=== PATIENT | female | born 1995 | race Caucasian/White ===

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

== ENCOUNTER 2017-09-17 17:57 | Emergency (ER) | payer OTHER ==
[2017-09-17 18:08] VITALS: BP 126/68; TEMP 97.6; BMI 27.1
[2017-09-17] MEDS ORDERED: ONDANSETRON 4 MG/2 ML VIAL IVPUSH ONE (18:19)
[2017-09-17] MEDS ORDERED: SODIUM CHLORIDE 0.9% 1000 ML INFUS.BAG IV ONE (18:20)
[2017-09-17] MEDS ORDERED: METOCLOPRAMIDE HCL INJECTION 10 MG/2 ML VIAL IVPUSH ONE (18:21)
--- NOTE | 2017-09-17 18:21 | PDOC ---
Attending Attestation - Resident Resident Name: Rosi Lim - ED Attending Attestation I have performed the following: I have examined & evaluated the patient, The case was reviewed & discussed with the resident, I agree w/resident's findings & plan, Exceptions are as noted - HPI HPI: 09/17/17 18:19 22 yo with history of migraine headaches presents with her usual migraine headache that has persisted for two days despite multiple doses of her usual migraine medicines. - Physicial Exam PE: 09/17/17 18:20 VSS, NAD, No Active Vomiting - Medical Decision Making 09/17/17 18:[address] Lim's Assessment and Plan
[2017-09-17] MEDS ORDERED: METOCLOPRAMIDE HCL INJECTION 10 MG/2 ML VIAL ONE (18:25)
[2017-09-17] MEDS ORDERED: PROCHLORPERAZINE INJECTION 10 MG/2 ML VIAL IVPB ONE (18:26)
[2017-09-17] MEDS ORDERED: PROCHLORPERAZINE INJECTION 10 MG/2 ML VIAL ONE (18:31)
--- NOTE | 2017-09-17 18:46 | PDOC ---
History of Present Illness - General Chief Complaint: Migraine Headache Stated Complaint: headaches/vomiting Time Seen by Provider: 09/17/17 18:14 - History of Present Illness Initial Comments: 09/17/17 18:40 Patient is a 22 y.o. female with no PMH who presents to the ED c/o exacerbation of her migraines including 3 episodes of non-bilous, non-blood emesis. Patient states she was given a prescription for Sumatriptan by her PMD, however it only worked for 1 week so she stopped taking the medications. Patient endorses some associated lightheadedness however denies syncope and also denies dyspnea, chest pain. NKDA Surgical: denies Social: denies nicotine, denies alcohol, denies recreational drugs PMD: Dr. rAreola Past History - Past Medical History Allergies/Adverse Reactions: Allergies Allergy/AdvReac Type Severity Reaction Status Date / Time No Known Allergies Allergy Verified 09/17/17 18:04 Home Medications: Ambulatory Orders Ondansetron HCl [Zofran] 4 mg PO PRN #16 tablet 09/17/17 COPD: No Other medical history: migraines - Immunization History Immunization Up to Date: No - Suicide/Smoking/Psychosocial Hx Smoking History: Never smoked Have you smoked in the past 12 months: No Number of Cigarettes Smoked Daily: 2 If you are a former smoker, when did you quit?: 2013 Information on smoking cessation initiated: No Hx Alcohol Use: No Drug/Substance Use Hx: No Substance Use Type: None Review of Systems - Review of Systems Constitutional: No: Chills, Fever HEENTM: No: Blurred Vision, Double Vision Respiratory: No: Shortness of Breath Cardiac (ROS): Yes: Lightheadedness. No: Chest Pain Neurological: Yes: Headache. No: Seizure, Tingling, Tremors, Weakness, Unsteady Gait, Ataxia, Dizziness All Other Systems: Reviewed and Negative *Physical Exam - Vital Signs Last Vital Signs Temp Pulse Resp BP Pulse Ox 97.6 F 92 H 18 126/68 100 09/17/17 18:00 09/17/17 18:00 09/17/17 18:00 09/17/17 18:00 09/17/17 18:00 - Physical Exam General Appearance: Yes: Nourished, Appropriately Dressed HEENT: positive: EOMI, OMAR Respiratory/Chest: positive: Lungs Clear, Normal Breath Sounds Cardiovascular: positive: S1, S2 Gastrointestinal/Abdominal: positive: Normal Bowel Sounds, Flat Extremity: positive: Normal Capillary Refill, Normal Inspection Integumentary: positive: Normal Color, Dry, Warm Neurologic: positive: early childhood services coordinator II-XII NML intact, Fully Oriented, Alert, Motor Strength 5/5, Finger to Nose, Other (non-ataxic, non-antalgic gait). negative: Confused, Disoriented ED Treatment Course - LABORATORY CBC & Chemistry Diagram: 09/17/17 18:56 09/17/17 18:56 - Medications Given in the ED: ED Medications Discontinued Medications Generic Name Dose Route Start Last Admin Trade Name Freq PRN Reason Stop Dose Admin Ondansetron HCl 4 mg 09/17/17 18:19 09/17/17 18:24 Zofran Injection IVPUSH 09/17/17 18:20 Not Given ONCE ONE Medical Decision Making - Medical Decision Making 09/17/17 18:46 Patient is a 22 y.o. female who presents with migraine + emesis. On PE, patient is hemodynamically stable, neurologically intact, normal cerebellar testing. PLAN: 1. CBC, CMP with electrolyte replacement as neccessary 2. Urine 3. Compazine + Reglan + Benadryl Reasess Likely dispo is home with neurology follow-up. Patient signed out to Dr. Dominguez (Resident) and Dr. Mraina (Attending). *DC/Admit/Observation/Transfer Diagnosis at time of Disposition: Migraine Qualifiers: Migraine type: unspecified Status migrainosus presence: without status migrainosus Intractability: not intractable Qualified Code(s): G43.909 - Migraine, unspecified, not intractable, without status migrainosus - Discharge Dispostion Disposition: HOME - Prescriptions Prescriptions: Ondansetron HCl [Zofran] 4 mg PO PRN #16 tablet - Referrals Referrals: Laron Arreola MD [Primary Care Provider] - William Cuenca MD [Staff Physician] - - Patient Instructions Printed Discharge Instructions: DI for Migraine Additional Instructions: Return to the ED for any new, worsening or concerning symptoms including increased pain, confusion, visual changes. Make an appointment with Dr. Cuenca (contact information provided) for evaluation of your headaches. - Post Discharge Activity
[2017-09-17 19:00] LABS: BASOPHIL 0.8 % (0-2.0); MCH 27.1 pg (25.7-33.7); MCHC 33.2 g/dl (32.0-36.0); MEAN CELL VOLUME 81.4 fl (80-96); MEAN PLT VOLUME 8.1 fl (7.5-11.1); NEUTROPHILS 57.1 % (42.8-82.8); PLATELET COUNT 300 K/MM3 (134-434); RDW 14.1 % (11.6-15.6); WHITE BLOOD COUNT 10.5 K/mm3 (4.0-10.0)
[2017-09-17 19:01] VITALS: PULSE 82
--- NOTE | 2017-09-17 19:04 | PDOC ---
*Physical Exam - Vital Signs Last Vital Signs Temp Pulse Resp BP Pulse Ox 97.6 F 82 16 126/68 100 09/17/17 18:00 09/17/17 19:00 09/17/17 19:00 09/17/17 18:00 09/17/17 19:00 ED Treatment Course - LABORATORY CBC & Chemistry Diagram: 09/17/17 18:56 09/17/17 18:56 - ADDITIONAL ORDERS Additional order review: Laboratory Results 09/17/17 18:56 Urine HCG, Qual Negative 09/17/17 18:56 RBC 5.18 MCV 81.4 MCHC 33.2 RDW 14.1 MPV 8.1 Neutrophils % 57.1 Lymphocytes % 34.8 Monocytes % 6.3 Eosinophils % 1.0 Basophils % 0.8 - Medications Given in the ED: ED Medications Discontinued Medications Generic Name Dose Route Start Last Admin Trade Name Freq PRN Reason Stop Dose Admin Diphenhydramine HCl 12.5 mg 09/17/17 18:22 09/17/17 18:55 Benadryl Injection - IVPUSH 09/17/17 18:23 12.5 mg ONCE ONE Administration Metoclopramide HCl 10 mg 09/17/17 18:21 09/17/17 18:55 Reglan Injection - IVPUSH 09/17/17 18:22 10 mg ONCE ONE Administration Ondansetron HCl 4 mg 09/17/17 18:19 09/17/17 18:24 Zofran Injection IVPUSH 09/17/17 18:20 Not Given ONCE ONE Prochlorperazine Edisylate 5 mg 09/17/17 18:26 09/17/17 18:55 Compazine Injection - IVPB 09/17/17 18:27 5 mg ONCE ONE Administration Sodium Chloride 1,000 ml 09/17/17 18:20 09/17/17 18:55 Normal Saline - IV 09/17/17 18:21 1,000 ml ONCE ONE Administration Medical Decision Making - Medical Decision Making 09/17/17 19:05 Care taken over from Dr. Lim. 09/17/17 19:40 Patient examined - patient reports complete resolution of symptoms and would like to go home. Requests prescription for nausea. Will proscribe 4 days of zofran with instructions to f/u w/in 1-2 days with PCP. *DC/Admit/Observation/Transfer Diagnosis at time of Disposition: Migraine Qualifiers: Migraine type: unspecified Status migrainosus presence: without status migrainosus Intractability: not intractable Qualified Code(s): G43.909 - Migraine, unspecified, not intractable, without status migrainosus - Discharge Dispostion Disposition: HOME - Referrals Referrals: Laron Arreola MD [Primary Care Provider] - - Patient Instructions Printed Discharge Instructions: DI for Migraine Additional Instructions: Please return if any increase in pain, fever, or any other concerning symptoms. - Post Discharge Activity
[2017-09-17 19:32] LABS: ALBUMIN 4.1 g/dl (3.4-5.0); ANION GAP 7 (8-16); BILIRUBIN,TOTAL 0.2 mg/dL (0.2-1.0); CALCIUM 9.5 mg/dL (8.5-10.1); CO2 29 mmol/L (21-32); CREATININE 0.6 mg/dL (0.55-1.02); GLUCOSE,RANDOM 91 mg/dL (74-106); SGOT/AST 9 U/L (15-37); SGPT/ALT 24 U/L (12-78)
[2017-09-17 19:34] LABS: ALK PHOS 68 U/L (45-117); TOT PROT 7.9 g/dl (6.4-8.2)
== END 2017-09-17 20:20 | disposition home or self-care (01) ==
LOC: JER 17:57
PROC: 3E0337Z Introduction of Electrolytic and Water Balance Substance into Peripheral Vein, Percutaneous Approach (ICD-10-PCS; principal; 2017-09-17)
PROC: 3E033GC Introduction of Other Therapeutic Substance into Peripheral Vein, Percutaneous Approach (ICD-10-PCS; 2017-09-17)
DX: G43.909 Migraine, unspecified, not intractable, without status migrainosus (principal); Z87.891 Personal history of nicotine dependence
CPT/HCPCS: 36415; 80053; 84703; 85025; 99283-25

== ENCOUNTER 2018-01-06 01:26 | Emergency (ER) | payer OTHER ==
[2018-01-06 01:44] VITALS: BP 119/73; PULSE 92; TEMP 97.2; BMI 26.5
[2018-01-06] MEDS ORDERED: methylPREDNISolone NA SUCC 125 MG/2 ML VIAL IVPB ONE (01:49)
[2018-01-06] MEDS ORDERED: SODIUM CHLORIDE 1,000 ML IV STA (01:49)
--- NOTE | 2018-01-06 01:49 | PDOC ---
History of Present Illness - General Chief Complaint: Rash Stated Complaint: RASH Time Seen by Provider: 01/06/18 01:37 History Source: Patient Exam Limitations: No Limitations - History of Present Illness Initial Comments: 01/06/18 02:45 Best Contact: Pmhx:N/A Pshx:Tonsillectomy 2000 Allergies: NKDA 22-year-old female presents to the emergency department complaining of bilateral anterior forearm , anterior chest and lower back puritic urticaria without nausea/vomiting, fever/chills, chest pain, shortness of breath. Patient states she was at [facility] for approximately one week 6 days ago when she noticed a slow onset of urticaria. Patient states the food is a bit different but she denied using different soap or detergent. Patient states she did take Benadryl 50 mg 2 days ago and yesterday with relief. Patient states the urticaria has gotten better but has not gone away. No history of similar symptoms. Past History - Past Medical History Allergies/Adverse Reactions: Allergies Allergy/AdvReac Type Severity Reaction Status Date / Time No Known Allergies Allergy Verified 01/06/18 01:43 Home Medications: Ambulatory Orders Methylprednisolone [Medrol Dose Daniel] 4 mg PO ASDIR #21 tablet 01/06/18 Ranitidine HCl [Zantac] 150 mg PO DAILY #10 tablet 01/06/18 COPD: No - Immunization History Immunization Up to Date: No - Suicide/Smoking/Psychosocial Hx Smoking History: Never smoked Have you smoked in the past 12 months: No Number of Cigarettes Smoked Daily: 2 If you are a former smoker, when did you quit?: 2013 Information on smoking cessation initiated: No Hx Alcohol Use: No Drug/Substance Use Hx: No Substance Use Type: None Review of Systems - Review of Systems Able to Perform ROS?: Yes Comments:: 01/06/18 02:50 CONSTITUTIONAL: Absent: fever, chills, diaphoresis, generalized weakness, malaise, loss of appetite HEENT: Absent: rhinorrhea, nasal congestion, throat pain, throat swelling, difficulty swallowing, mouth swelling, ear pain, eye pain, visual Changes CARDIOVASCULAR: Absent: chest pain, loss of consciousness, palpitations, irregular heart rate, peripheral edema RESPIRATORY: Absent: cough, shortness of breath, dyspnea with exertion, orthopnea, wheezing, stridor, hemoptysis GASTROINTESTINAL: Absent: abdominal pain, abdominal distension, nausea, vomiting, diarrhea, constipation, melena, hematochezia GENITOURINARY: Absent: dysuria, frequency, urgency, hesitancy, hematuria, flank pain, genital pain MUSCULOSKELETAL: Absent: myalgia, arthralgia, joint swelling SKIN: +Puritic urticartia ant b/l forearms, lower back, ant chest Absent: pallor HEMATOLOGIC/IMMUNOLOGIC: Absent: easy bleeding, easy bruising, lymphadenopathy, frequent infections Is the patient limited Turkish proficient: No *Physical Exam - Vital Signs Last Vital Signs Temp Pulse Resp BP Pulse Ox 97.2 F L 92 H 20 119/73 100 01/06/18 01:43 01/06/18 01:43 01/06/18 01:43 01/06/18 01:43 01/06/18 01:43 - Physical Exam Comments: 01/06/18 02:51 GENERAL: Well developed, well nourished. Awake and alert. No acute distress. HEENT: Normocephalic, atraumatic. PERRLA, EOMI. No conjunctival pallor. Sclera are non- icteric. Moist mucous membranes. Oropharynx is clear. NECK: Supple. Full ROM. No JVD. Carotid pulses 2+ and symmetric, without bruits. No thyromegaly. No lymphadenopathy. CARDIOVASCULAR: Regular rate and rhythm. No murmurs, rubs, or gallops. Distal pulses are 2+ and symmetric. PULMONARY: No evidence of respiratory distress. Lungs clear to auscultation bilaterally. No wheezing, rales or rhonchi. ABDOMINAL: Soft. Non-tender. Non-distended. No rebound or guarding. No organomegaly. Normoactive bowel sounds. MUSCULOSKELETAL Normal range of motion at all joints. No bony deformities or tenderness. No CVA tenderness. EXTREMITIES: No cyanosis. No clubbing. No edema. No calf tenderness. SKIN: Mild anterior bilateral forearm/anterior chest, lower back urticaria Warm and dry. Normal capillary refill. No rashes. No jaundice. *DC/Admit/Observation/Transfer Diagnosis at time of Disposition: Urticaria - Discharge Dispostion Disposition: HOME Condition at time of disposition: Stable Admit: No - Prescriptions Prescriptions: Methylprednisolone [Medrol Dose Daniel] 4 mg PO ASDIR #21 tablet Ranitidine HCl [Zantac] 150 mg PO DAILY #10 tablet - Referrals Referrals: Laron Arreola MD [Primary Care Provider] - - Patient Instructions Printed Discharge Instructions: DI for Hives Additional Instructions: Take Medrol Dosepak as prescribed Take Zantac daily for 10 days Follow up with Broker Assistant this week Return to the ER for severe/persistent/worsening/concerning symptoms - Post Discharge Activity
[2018-01-06] MEDS ORDERED: RANITIDINE HCL 150 MG TABLET (FP) PO ONE (01:50)
[2018-01-06] MEDS ORDERED: RANITIDINE HCL 150 MG TABLET (FP) ONE (01:55)
[2018-01-06] MEDS ORDERED: methylPREDNISolone NA SUCC 125 MG/2 ML VIAL ONE ×2 (01:55→01:56)
== END 2018-01-06 02:56 | disposition home or self-care (01) ==
LOC: JER 01:26
PROC: 3E0337Z Introduction of Electrolytic and Water Balance Substance into Peripheral Vein, Percutaneous Approach (ICD-10-PCS; principal; 2018-01-06)
PROC: 3E033GC Introduction of Other Therapeutic Substance into Peripheral Vein, Percutaneous Approach (ICD-10-PCS; 2018-01-06)
PROC: 3E0333Z Introduction of Anti-inflammatory into Peripheral Vein, Percutaneous Approach (ICD-10-PCS; 2018-01-06)
DX: L50.9 Urticaria, unspecified (principal)
CPT/HCPCS: 96361; 96374; 96375; 99281-25; J7030

== ENCOUNTER 2018-09-11 18:23 | Emergency (ER) | payer OTHER ==
[2018-09-11 18:43] VITALS: TEMP 99.1; BMI 24.6
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
[2018-09-11] MEDS ORDERED: METOCLOPRAMIDE HCL INJECTION 10 MG/2 ML VIAL IVPUSH ONE (19:17)
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
[2018-09-11] MEDS ORDERED: METOCLOPRAMIDE HCL 10 MG TABLET (FP) PO ONE ×2 (20:18→21:08)
[2018-09-11] MEDS ORDERED: diphenhydrAMINE HCL 25 MG CAPSULE (FP) PO ONE ×2 (20:18→21:08)
[2018-09-11] MEDS ORDERED: ONDANSETRON *ODT* 4 MG TABLET SL ONE (20:38)
[2018-09-11] MEDS ORDERED: ONDANSETRON *ODT* 4 MG TABLET ONE (21:08)
--- NOTE | 2018-09-11 22:12 | PDOC ---
*Physical Exam - Vital Signs Last Vital Signs Temp Pulse Resp BP Pulse Ox 99.1 F 88 18 126/80 100 09/11/18 18:28 09/11/18 18:28 09/11/18 18:28 09/11/18 18:28 09/11/18 18:28 ED Treatment Course - LABORATORY CBC & Chemistry Diagram: 09/11/18 21:45 - ADDITIONAL ORDERS Additional order review: Laboratory Results 09/11/18 20:10 Urine HCG, Qual Negative - Medications Given in the ED: ED Medications Discontinued Medications Generic Name Dose Route Start Last Admin Trade Name Ela PRN Reason Stop Dose Admin Diphenhydramine HCl 25 mg 09/11/18 19:17 09/11/18 20:37 Benadryl Injection - IVPUSH 09/11/18 19:18 Not Given ONCE ONE Diphenhydramine HCl 25 mg 09/11/18 20:18 09/11/18 21:28 Benadryl - PO 09/11/18 20:19 25 mg ONCE ONE Administration Metoclopramide HCl 10 mg 09/11/18 19:17 09/11/18 20:37 Reglan Injection - IVPUSH 09/11/18 19:18 Not Given ONCE ONE Metoclopramide HCl 10 mg 09/11/18 20:18 09/11/18 21:28 Reglan - PO 09/11/18 20:19 10 mg ONCE ONE Administration Ondansetron HCl 4 mg 09/11/18 20:38 09/11/18 21:28 Zofran Odt - SL 09/11/18 20:39 4 mg ONCE ONE Administration Medical Decision Making - Medical Decision Making 09/11/18 22:[address] Nunes. Patient currently pending CTA. 09/12/18 00:14 CT/CTA negative. Discharging patient to home. *DC/Admit/Observation/Transfer Diagnosis at time of Disposition: Headache Qualifiers: Headache type: unspecified Headache chronicity pattern: acute headache Intractability: not intractable Qualified Code(s): R51 - Headache - Discharge Dispostion Disposition: HOME - Referrals - Patient Instructions Printed Discharge Instructions: DI for Concussion Additional Instructions: You were evaluated today in the ED for your headache. We evaluated you with Head CT as well as CTA. No concerning findings were found at this time. You may take tylenol and motrin over the counter per package instructions for pain control. Follow-up with primary care provider later this week for further evaluation. Return to ED if any fever, chills, altered mental status, or other concerning findings. - Post Discharge Activity
[2018-09-11 22:38] LABS: ALBUMIN 4.1 g/dl (3.4-5.0); ALK PHOS 61 U/L (45-117); ANION GAP 9 MMOL/L (8-16); BILIRUBIN,TOTAL 0.4 mg/dL (0.2-1); BLOOD UREA NITROGEN 13 mg/dL (7-18); CALCIUM 9.2 mg/dL (8.5-10.1); CHLORIDE 104 mmol/L (98-107); CO2 27 mmol/L (21-32); CREATININE 0.7 mg/dL (0.55-1.3); GLUCOSE,RANDOM 95 mg/dL (74-106); POTASSIUM 3.6 mmol/L (3.5-5.1); SGOT/AST 15 U/L (15-37); SGPT/ALT 17 U/L (13-61); SODIUM 140 mmol/L (136-145)
[2018-09-11 23:38] VITALS: BP 119/78; PULSE 85
== END 2018-09-12 00:40 | disposition home or self-care (01) ==
LOC: JER 18:23
DX: R51 Headache (principal); V43.52XA Car driver injured in collision with other type car in traffic accident, initial encounter; Y92.414 Local residential or business street as the place of occurrence of the external cause; Y93.89 Activity, other specified; Y99.8 Other external cause status
CPT/HCPCS: 36415; 70450-TC; 70498-TC; 80053; 84703; 99282-25; Q0162

== ENCOUNTER 2019-11-28 15:36 | Emergency (ER) | payer OTHER ==
[2019-11-28] MEDS ORDERED: ACETAMINOPHEN 1000 MG/100 ML VIAL (NON FORMULARY) IVPB ONE (15:53)
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
[2019-11-28 16:00] VITALS: BP 112/69; PULSE 87; TEMP 98; BMI 24.4
[2019-11-28 16:44] LABS: BASO % 0.5 % (0-2.0); EOS % 0.4 % (0-4.5); LYMPH % 18.3 % (8-40); MCH 26.9 pg (25.7-33.7); MCHC 32.4 g/dl (32.0-36.0); MEAN CELL VOLUME 82.9 fl (80-96); MEAN PLT VOLUME 7.8 fl (7.5-11.1); MONO % 4.8 % (3.8-10.2); PLATELET COUNT 323 K/MM3 (134-434); RBC 4.82 M/mm3 (3.60-5.2); WHITE BLOOD COUNT 10.4 K/mm3 (4.0-10.0)
[2019-11-28 17:05] LABS: EPI CELLS 4.6 /HPF (0-5/HPF); HYALINE CASTS 3 /lpf (0-8); URINE APPEARANCE CLEAR; URINE BACTERIA 38.5 /hpf (NEGATIVE); URINE BILIRUBIN NEGATIVE (NEGATIVE); URINE COLOR YELLOW; URINE GLUCOSE (UA) NEGATIVE (NEGATIVE); URINE KETONE TRACE (NEGATIVE); URINE LEUK ESTERASE NEGATIVE (NEGATIVE); URINE NITRITE NEGATIVE (NEGATIVE); URINE PROTEIN NEGATIVE (NEGATIVE); URINE RBC 1 /hpf (0-4); URINE UROBILINOGEN 0.2 mg/dL (0.2-1.0); URINE WBC 2 /hpf (0-5)
[2019-11-28 17:17] LABS: ALBUMIN 4.1 g/dl (3.4-5.0); BILIRUBIN,TOTAL 0.4 mg/dL (0.2-1); BLOOD UREA NITROGEN 12.1 mg/dL (7-18); CALCIUM 9.2 mg/dL (8.5-10.1); CREATININE 0.6 mg/dL (0.55-1.3); POTASSIUM 3.6 mmol/L (3.5-5.1); TOT PROT 7.8 g/dl (6.4-8.2)
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
== END 2019-11-28 19:40 | disposition home or self-care (01) ==
LOC: JER 15:36
DX: O26.891 Other specified pregnancy related conditions, first trimester (principal); O20.0 Threatened abortion; V43.52XA Car driver injured in collision with other type car in traffic accident, initial encounter; Y92.414 Local residential or business street as the place of occurrence of the external cause; Y93.89 Activity, other specified; Y99.8 Other external cause status; Z3A.01 Less than 8 weeks gestation of pregnancy
CPT/HCPCS: 36415; 76817-TC; 80053; 81003; 84702; 84703; 85025; 86850; 86900; 86901; 87086; 99284-25

== ENCOUNTER 2020-06-29 01:32 | Emergency (ER) | payer OTHER ==
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
--- NOTE | 2020-06-29 01:53 | PDOC ---
History of Present Illness - General Stated Complaint: RASH Time Seen by Provider: 06/29/20 01:49 Past History - Medical History Allergies/Adverse Reactions: Allergies Allergy/AdvReac Type Severity Reaction Status Date / Time No Known Allergies Allergy Verified 06/26/20 15:41 Home Medications: Ambulatory Orders Methylprednisolone [Medrol Dose Daniel] 4 mg PO ASDIR #21 tablet 01/06/18 Ranitidine HCl [Zantac] 150 mg PO DAILY #10 tablet 01/06/18 Doxycycline Hyclate 100 mg PO BID 7 Days #14 capsule 06/26/20 predniSONE [Deltasone -] 20 mg PO BID 4 Days #8 tablet 06/26/20 COPD: No - Immunization History Immunization Up to Date: No - Psycho-Social/Smoking History Smoking History: Never smoked Have you smoked in the past 12 months: No Number of Cigarettes Smoked Daily: 2 If you are a former smoker, when did you quit?: 2013
[2020-06-29 02:00] VITALS: BP 120/73; PULSE 85; TEMP 98.3; BMI 24.0
[2020-06-29] MEDS ORDERED: CEPHALEXIN MONOHYDRATE 500 MG CAPSULE (UD) PO ONE (02:41)
[2020-06-29] MEDS ORDERED: diphenhydrAMINE HCL 25 MG CAPSULE (FP) PO ONE ×2 (02:41→03:07)
--- NOTE | 2020-06-29 02:44 | PDOC ---
History of Present Illness - General Chief Complaint: Rash Stated Complaint: RASH Time Seen by Provider: 06/29/20 01:49 - History of Present Illness Initial Comments: 06/29/20 02:42 - rash after hike weeks ago itchy worse today ankles lesion on L ankle with 2cm erythema and purple, well circumscribed. lyme sent 2 days ago. pending result patient concerned for dixycycline allergy as she felt more itchy after taking it no hives, airway or signs of allergy Will treat with keflex and benadryl Past History - Medical History Allergies/Adverse Reactions: Allergies Allergy/AdvReac Type Severity Reaction Status Date / Time No Known Allergies Allergy Verified 06/29/20 02:00 Home Medications: Ambulatory Orders Methylprednisolone [Medrol Dose Daniel] 4 mg PO ASDIR #21 tablet 01/06/18 Ranitidine HCl [Zantac] 150 mg PO DAILY #10 tablet 01/06/18 Doxycycline Hyclate 100 mg PO BID 7 Days #14 capsule 06/26/20 predniSONE [Deltasone -] 20 mg PO BID 4 Days #8 tablet 06/26/20 Cephalexin Monohydrate [Keflex -] 500 mg PO Q6H 7 Days #28 capsule 06/29/20 Diphenhydramine HCl [Benadryl -] 25 mg PO Q8H #20 capsule 06/29/20 COPD: No - Reproductive History Is Patient Now?: No - Immunization History Immunization Up to Date: No - Psycho-Social/Smoking History Smoking History: Never smoked Have you smoked in the past 12 months: No Number of Cigarettes Smoked Daily: 2 If you are a former smoker, when did you quit?: 2013 Information on smoking cessation initiated: No - Substance Abuse Hx (Audit-C & DAST Scrn) How often the patient has a drink containing alcohol: Never Score: In Men: 4 or > Positive; In Women: 3 or > Positive: 0 Screen Result (Pos requires Nsg. Audit-10AR): Negative In the last yr the pt used illegal drug/Rx for NonMed reason: No Score: Yes response is considered Positive: 0 Screen Result (Positive result requires Nsg. DAST-10): Negative *Physical Exam - Vital Signs Last Vital Signs Temp Pulse Resp BP Pulse Ox 98.3 F 85 16 120/73 99 06/29/20 01:35 06/29/20 01:35 06/29/20 01:35 06/29/20 01:35 06/29/20 01:35 Discharge - Discharge Information Problems reviewed: Yes Clinical Impression/Diagnosis: Rash Condition: Fair Disposition: HOME - Additional Discharge Information Prescriptions: Diphenhydramine HCl [Benadryl -] 25 mg PO Q8H #20 capsule Cephalexin Monohydrate [Keflex -] 500 mg PO Q6H 7 Days #28 capsule - Follow up/Referral Referrals: Lexis Mccall MD [Non Staff, Medical] - Mirza Krueger MD [Non Staff, Medical] - Gaudencio Colindres MD [Non Staff, Medical] - - Patient Discharge Instructions Additional Instructions: You were seen in the ER for increased itching. You were concerned for possible doxycycline allergy You were switched to Keflex and were given Benadryl You have a prescription for Benadryl, Pepcid and Keflex to be taken as prescribed. You have a referral to Dermatology Return to the ER if you feel that your wound is swelling if there is redness, if you have fevers or any other concerning symptoms. - Post Discharge Activity
--- NOTE | 2020-06-29 02:45 | PDOC ---
Attending Attestation - Resident Resident Name: Ciera Chandler - ED Attending Attestation I have performed the following: I have examined & evaluated the patient, The case was reviewed & discussed with the resident, I agree w/resident's findings & plan - HPI HPI: 06/29/20 02:41 pt has rashes on her ankles bilaterally. pt wore ankle socks while hiking 3 weeks ago. she was applying hydrocortisone to the ankles and now the rash is worse. pt came to the ER and was treated with doxy and prednisone. Now she complains that doxy and prednisone are making the itchiness worse. - Physicial Exam PE: 06/29/20 02:43 Pt has a raised targetlike lesion on the achilles on the left pt has a itchy rasied rash on the right achilles ot now has linear poison josette like rash on the fore arm and berger - Medical Decision Making 06/29/20 02:44 pt will be switched off of prednisone and doxy to keflex. SHe can continue her neosporin Discharge - Discharge Information Problems reviewed: Yes Clinical Impression/Diagnosis: Rash Condition: Fair Disposition: HOME - Additional Discharge Information Prescriptions: Diphenhydramine HCl [Benadryl -] 25 mg PO Q8H #20 capsule Diphenhydramine HCl [Benadryl -] 25 mg PO Q6H #20 capsule Cephalexin Monohydrate [Keflex -] 500 mg PO Q6H 7 Days #28 capsule Cephalexin Monohydrate [Keflex -] 500 mg PO Q6H 7 Days #28 capsule - Follow up/Referral Referrals: Lexis Mccall MD [Non Staff, Medical] - Mirza Krueger MD [Non Staff, Medical] - Gaudencio Colindres MD [Non Staff, Medical] - - Patient Discharge Instructions Additional Instructions: You were seen in the ER for increased itching. You were concerned for possible doxycycline allergy You were switched to Keflex and were given Benadryl You have a prescription for Benadryl, Pepcid and Keflex to be taken as prescribed. You have a referral to Dermatology Return to the ER if you feel that your wound is swelling if there is redness, if you have fevers or any other concerning symptoms. - Post Discharge Activity Work/Back to School Note: Back to Work
[2020-06-29] MEDS ORDERED: FAMOTIDINE 20 MG TABLET PO ONE (02:49)
[2020-06-29] MEDS ORDERED: CEPHALEXIN MONOHYDRATE 500 MG CAPSULE (UD) ONE (03:08)
[2020-06-29] MEDS ORDERED: FAMOTIDINE 20 MG TABLET ONE (03:08)
== END 2020-06-29 03:20 | disposition home or self-care (01) ==
LOC: JER 01:32
DX: R21 Rash and other nonspecific skin eruption (principal)
CPT/HCPCS: 99283-25

== ENCOUNTER 2020-07-03 16:09 | Emergency (ER) | payer OTHER ==
[2020-07-03 16:29] VITALS: BP 119/62; PULSE 89; TEMP 99.1; BMI 23.9
--- OUTSIDE RECORDS SUMMARY | 2020-07-03 16:36 | XMS ---
:1995 Author Organization [facility] Care Team Providers Name Role Phone Guadalupe [...] is protected by Article 27-F of the [facility] Public Health law. If you continue you may haveaccess to information: Regarding HIV / AIDS; Provided by facilities licensed or operated by the [facility] Office of Mental Health; or Provided by the [facility] Office for People With Developmental Disabilities. If such information is present, then the following [facility] mandated warning applies: This information has [...] law may result in a fine or penitentiary sentence or both. A general authorization for the release of medical or other information is NOT sufficient authorization for further disclosure. Encounters Encounter Providers Location Date Indications Data Source(s ) U Attender: Guadalupe Angulo [phone] 07/31/2019 [facility] (Family 11:00:00 AM EDT Services of - 07/31/2019 [place]) 12:00:00 PM EDT Patient admitted. Insurance Providers Payer name Policy type Policy ID Covered Covered republican's Policy P arsen / Coverage republican ID relationship to [place] ormation type [place] Self MEDICA[place] [id number] SP [id number] PROGRESSIVE [id number] SP [id number] PROGRESSIVE [id number] SP [id number] SELF PAY INSURANCE NO FAULT [id number] SP [id number] PENDING WC/NF [id number] ONLY Problems, Conditions, and Diagnoses Code Display Name Description Problem Type Effective Dates Data Source(s) F43.10 Post-traumatic Post-traumatic Diagnosis 07/31/2019 CARELO GIC stress disorder, stress disorder, 11:00:00 AM E DT ([facility] unspecified unspecified Services [facility]) F33.2 Major depressive Major depressive Diagnosis 07/31/2019 [place] RELOGIC disorder, disorder, 11:00:00 AM EDT (Family recurrent severe recurrent severe Se rvices of without psychotic without psychotic [place]) features features Surgeries/Procedures Procedure Description Date Indications Data Source(s) [address] 15-30 Min Brief Therapy 06/26/2020 [facility] (Family 12:00:00 AM EDT Services [facility]) [address] 15-30 Min Brief Therapy 06/17/2020 [facility] (Family 12:00:00 AM EDT Services [facility]) [address] 15-30 Min Brief Therapy 05/27/2020 [facility] (Family 12:00:00 AM EDT Services [facility]) [address] 15-30 Min Brief Therapy 05/22/2020 [facility] (Family 12:00:00 AM EDT Services of [place]) [address] 45-50 Min Regular 05/13/2020 [facility] (Family Therapy 12:00:00 AM EDT Services [facility]) [address] 15-30 Min Brief Therapy 05/06/2020 [facility] (Family 12:00:00 AM EDT Services [facility]) [address] 15-30 Min Brief Therapy 04/29/2020 [facility] (Family 12:00:00 AM EDT Services of [place]) [address] 45-50 Min Regular 04/22/2020 [facility] (Family Therapy 12:00:00 AM EDT Services [facility]) [address] 45-50 Min Regular 04/15/2020 [facility] (Family Therapy 12:00:00 AM EDT Services [facility]) [address] 15-30 Min Brief Therapy 04/08/2020 [facility] (Family 12:00:00 AM EDT Services [facility]) [address] 45-50 Min Regular 04/06/2020 [facility] (Family Therapy 12:00:00 AM EDT Services [facility]) [address] 45-50 Min Regular 03/25/2020 [facility] (Family Therapy 12:00:00 AM EDT Services [facility]) [address] 15-30 Min Brief Therapy 03/11/2020 [facility] (Family 12:00:00 AM EDT Services [facility]) [address] 15-30 Min Brief Therapy 03/10/2020 [facility] (Family 12:00:00 AM EDT Services [facility]) [address] 45-50 Min Regular 02/24/2020 [facility] (Family Therapy 12:00:00 AM EDT Services [facility]) [address] 45-50 Min Regular 02/17/2020 [facility] (Family Therapy 12:00:00 AM EDT Services [facility]) [address] 45-50 Min Regular 02/03/2020 [facility] (Family Therapy 12:00:00 AM EDT Services [facility]) [address] 45-50 Min Regular 01/30/2020 [facility] (Family Therapy 12:00:00 AM EDT Services [facility]) [address] 45-50 Min Regular 01/27/2020 [facility] (Family Therapy 12:00:00 AM EDT Services [facility]) [address] 45-50 Min Regular 01/22/2020 [facility] (Family Therapy 12:00:00 AM EDT Services [facility])
[2020-07-03] MEDS ORDERED: predniSONE 20 MG TABLET (UD) ONE (16:57)
[2020-07-03] MEDS ORDERED: predniSONE 20 MG TABLET (UD) PO ONE (16:57)
--- NOTE | 2020-07-03 17:10 | PDOC ---
History of Present Illness - General Chief Complaint: Hives Stated Complaint: HIVES Time Seen by Provider: 07/03/20 16:38 History Source: Patient - History of Present Illness Timing/Duration: reports: other Location: reports: extremities Past History - Medical History Allergies/Adverse Reactions: Allergies Allergy/AdvReac Type Severity Reaction Status Date / Time No Known Allergies Allergy Verified 06/29/20 02:00 Home Medications: Ambulatory Orders Methylprednisolone [Medrol Dose Daniel] 4 mg PO ASDIR #21 tablet 01/06/18 Ranitidine HCl [Zantac] 150 mg PO DAILY #10 tablet 01/06/18 Doxycycline Hyclate 100 mg PO BID 7 Days #14 capsule 06/26/20 predniSONE [Deltasone -] 20 mg PO BID 4 Days #8 tablet 06/26/20 Cephalexin Monohydrate [Keflex -] 500 mg PO Q6H 7 Days #28 capsule 06/29/20 Cephalexin Monohydrate [Keflex -] 500 mg PO Q6H 7 Days #28 capsule 06/29/20 Diphenhydramine HCl [Benadryl -] 25 mg PO Q6H #20 capsule 06/29/20 Diphenhydramine HCl [Benadryl -] 25 mg PO Q8H #20 capsule 06/29/20 predniSONE [Deltasone -] 20 mg PO DAILY #39 tablet 07/03/20 COPD: No - Reproductive History Is Patient Now?: No - Immunization History Immunization Up to Date: No - Psycho-Social/Smoking History Smoking History: Current every day smoker Have you smoked in the past 12 months: No Number of Cigarettes Smoked Daily: 2 If you are a former smoker, when did you quit?: 2013 Information on smoking cessation initiated: No - Substance Abuse Hx (Audit-C & DAST Scrn) How often the patient has a drink containing alcohol: Never Score: In Men: 4 or > Positive; In Women: 3 or > Positive: 0 Screen Result (Pos requires Nsg. Audit-10AR): Negative Review of Systems - Review of Systems Constitutional: No: Chills, Fever Respiratory: No: Cough, Shortness of Breath, Stridor, Wheezing Cardiac (ROS): No: Chest Pain Integumentary: Yes: Pruritus, Rash *Physical Exam - Vital Signs Last Vital Signs Temp Pulse Resp BP Pulse Ox 99.1 F 89 17 119/62 98 09/25/20 16:26 07/03/20 16:26 07/03/20 16:26 07/03/20 16:26 07/03/20 16:26 - Physical Exam General Appearance: Yes: Appropriately Dressed. No: Apparent Distress HEENT: positive: Normal Voice Neck: positive: Supple Respiratory/Chest: negative: Respiratory Distress Extremity: positive: Other (erythematous papules and patches to b/l LE, most notably over heels b/l where there are circular erythematous plaques) Integumentary: positive: Dry, Warm Neurologic: positive: Fully Oriented, Alert, Normal Mood/Affect Medical Decision Making - Medical Decision Making 07/03/20 17:00 25-year-old female, here with persistent pruritic rash to bilateral lower extremities. Of note, patient was seen here initially on 06/26 with pruritic rash to bilateral ankles. Patient hikes frequently and usually wears ankle socks and leggings with ankles exposed. When pt was seen on 06/26, was started on doxycycline for possible lyme but lyme has since come back neg. Was also started on prednisone but only given meds x 4 days. Was also given benadryl. Patient states she developed hives shortly after starting meds and returned to ED on 06/29 when doxy and prednisone was d/yung and pt started on keflex, neomycin and told to continue benadryl. Pt states she has taken prednisone and benadryl in past but hadn't taken doxy prior to this. Pt states rash has not improved and seems to be extending proximally to thighs. No respiratory symptoms. No known drug/food/environmental allergies otherwise. Feels well otherwise. see exam Possible poison safia dermatitis Started on 3 weeks pred taper today and given derm f/u To d/c keflex/neomycin as unlikely infection Lyme since came back negative Pt to return to ER as needed, otherwise f/u w/ derm 07/03/20 17:12 Discharge - Discharge Information Problems reviewed: Yes Clinical Impression/Diagnosis: Rash and nonspecific skin eruption Condition: Stable Disposition: HOME - Additional Discharge Information Prescriptions: predniSONE [Deltasone -] 20 mg PO DAILY #39 tablet - Follow up/Referral Referrals: Jenni Padron MD [Staff Physician] - - Patient Discharge Instructions Patient Printed Discharge Instructions: DI for Poison Safia Allergy Additional Instructions: Today you were started 3 weeks of steroids for possible poison safia You can discontinue the Keflex and the neomycin because there is no sign of infection at this time You can continue to take Benadryl every 6 hours for breakthrough itching Please call Dr. Padron of dermatology on Monday to make an appointment - Post Discharge Activity
== END 2020-07-03 17:07 | disposition home or self-care (01) ==
LOC: JERFT 16:09
DX: R21 Rash and other nonspecific skin eruption (principal)
CPT/HCPCS: 99283-25

== ENCOUNTER 2020-12-21 19:10 | Emergency (ER) | payer OTHER ==
[2020-12-21 19:32] VITALS: BP 113/71; PULSE 85; TEMP 98.2; BMI 26.5
[2020-12-21 21:28] LABS: URINE APPEARANCE CLEAR; URINE BILIRUBIN NEGATIVE (NEGATIVE); URINE COLOR YELLOW; URINE GLUCOSE (UA) NEGATIVE (NEGATIVE); URINE KETONE TRACE (NEGATIVE); URINE LEUK ESTERASE NEGATIVE (NEGATIVE); URINE NITRITE NEGATIVE (NEGATIVE); URINE PROTEIN NEGATIVE (NEGATIVE); URINE UROBILINOGEN 0.2 mg/dL (0.2-1.0)
[2020-12-21 21:31] LABS: HCG,QUALITATIVE URINE Negative
== END 2020-12-21 22:01 | disposition home or self-care (01) ==
LOC: JER 19:10 → JERFT 19:10 → JER 22:01
DX: Z32.02 Encounter for pregnancy test, result negative (principal)
CPT/HCPCS: 81003; 84703; 87086; 87186; 99283-25

== ENCOUNTER 2021-09-16 23:29 | Emergency (ER) | payer OTHER ==
[2021-09-16 23:33] VITALS: BP 120/77; TEMP 97.9; BMI 22.1
[2021-09-17] MEDS ORDERED: SODIUM CHLORIDE 1,000 ML IV STA (00:30)
[2021-09-17] MEDS ORDERED: ONDANSETRON 4 MG/2 ML VIAL IVPUSH ONE (00:30)
[2021-09-17] MEDS ORDERED: ONDANSETRON 4 MG/2 ML VIAL ONE (00:33)
[2021-09-17 01:05] LABS: EPI CELLS 12 /uL (0-25.1); HCG,QUALITATIVE URINE Negative; HYALINE CASTS 0 /uL (0-3.1); PH,URINE 6.5 (5.0-8.0); URINE APPEARANCE CLOUDY; URINE BACTERIA 118 /uL (0-1359); URINE BILIRUBIN NEGATIVE (NEGATIVE); URINE COLOR YELLOW; URINE GLUCOSE (UA) NEGATIVE (NEGATIVE); URINE KETONE NEGATIVE (NEGATIVE); URINE LEUK ESTERASE NEGATIVE (NEGATIVE); URINE NITRITE NEGATIVE (NEGATIVE); URINE PROTEIN NEGATIVE (NEGATIVE); URINE RBC 2236 /uL (0-23.9); URINE WBC 20 /uL (0-25.8)
[2021-09-17 01:11] LABS: EOS % 3.8 % (0-4.5); HEMATOCRIT 39.3 % (32.4-45.2); HEMOGLOBIN 12.9 GM/dL (10.7-15.3); LYMPH % 45.1 % (8-40); MCH 26.8 pg (25.7-33.7); MCHC 32.8 g/dl (32.0-36.0); MEAN CELL VOLUME 81.7 fl (80-96); MEAN PLT VOLUME 7.2 fl (7.5-11.1); MONO % 7.8 % (3.8-10.2); NEUT % 42.3 % (42.8-82.8); PLATELET COUNT 319 10^3/uL (134-434); RBC 4.81 M/mm3 (3.60-5.2); RDW 15.1 % (11.6-15.6); WHITE BLOOD COUNT 8.4 K/mm3 (4.0-10.0)
[2021-09-17 01:40] LABS: ALBUMIN 4.1 g/dl (3.4-5.0); BLOOD UREA NITROGEN 12.3 mg/dL (7-18); CALCIUM 9.7 mg/dL (8.5-10.1)
[2021-09-17 01:43] LABS: CREATININE 0.7 mg/dL (0.55-1.3)
[2021-09-17 01:45] LABS: BILIRUBIN,TOTAL 0.3 mg/dL (0.2-1)
[2021-09-17 02:08] VITALS: PULSE 82
== END 2021-09-17 02:08 | disposition home or self-care (01) ==
LOC: JER 23:29
PROC: 3E033GC Introduction of Other Therapeutic Substance into Peripheral Vein, Percutaneous Approach (ICD-10-PCS; principal; 2021-09-16)
DX: R11.2 Nausea with vomiting, unspecified (principal)
CPT/HCPCS: 36415; 80053; 81003; 83690; 84703; 85025; 87086; 87804; 99284-25; C9803; U0003; U0005

== ENCOUNTER 2022-09-06 14:54 | Emergency (ER) | payer OTHER ==
[2022-09-06 15:15] VITALS: BP 114/53; PULSE 81; RESP 18; TEMP 98.2; BMI 24.3
[2022-09-06 16:07] LABS: BASO % 0.6 % (0-2.0); HEMATOCRIT 40.4 % (32.4-45.2); LYMPH % 30.4 % (8-40); MCHC 32.2 g/dl (32.0-36.0); MEAN CELL VOLUME 83.9 fl (80-96); MEAN PLT VOLUME 7.8 fl (7.5-11.1); MONO % 6.3 % (3.8-10.2); NEUT % 61.7 % (42.8-82.8); PLATELET COUNT 288 10^3/uL (134-434); RBC 4.81 M/mm3 (3.60-5.2); RDW 15.7 % (11.6-15.6); WHITE BLOOD COUNT 9.6 K/mm3 (4.0-10.0)
[2022-09-06 16:17] LABS: PH,URINE 5.5 (5.0-8.0); URINE APPEARANCE CLEAR; URINE BILIRUBIN NEGATIVE (NEGATIVE); URINE COLOR YELLOW; URINE GLUCOSE (UA) NEGATIVE (NEGATIVE); URINE KETONE TRACE (NEGATIVE); URINE LEUK ESTERASE NEGATIVE (NEGATIVE); URINE NITRITE NEGATIVE (NEGATIVE); URINE PROTEIN NEGATIVE (NEGATIVE)
[2022-09-06 16:34] LABS: INR 1.17 (0.83-1.09); PROTHROMBIN TIME (PATIENT) 13.5 SEC (9.7-13.0)
[2022-09-06 16:35] LABS: ALBUMIN 3.7 g/dl (3.4-5.0); BLOOD UREA NITROGEN 14.7 mg/dL (7-18)
[2022-09-06 16:36] LABS: ACTIVATED PTT 36.8 SECONDS (25.2-36.5)
[2022-09-06 16:38] LABS: CREATININE 0.7 mg/dL (0.55-1.3)
[2022-09-06 16:39] LABS: TOT PROT 7.3 g/dl (6.4-8.2)
[2022-09-06 16:40] LABS: BILIRUBIN,TOTAL 0.1 mg/dL (0.2-1)
== END 2022-09-06 18:30 | disposition home or self-care (01) ==
LOC: JERFT 14:54
DX: O26.891 Other specified pregnancy related conditions, first trimester (principal); R10.2 Pelvic and perineal pain; Z3A.01 Less than 8 weeks gestation of pregnancy
CPT/HCPCS: 36415; 76817-TC; 80053; 81003; 84702; 84703; 85025; 85610; 85730; 86850; 86900; 86901; 87086; 99284-25

== ENCOUNTER 2022-09-08 17:41 | Emergency (ER) | payer OTHER ==
[2022-09-08 18:06] VITALS: BP 101/66; PULSE 85; RESP 18; TEMP 98.7; BMI 24.3
== END 2022-09-08 21:17 | disposition home or self-care (01) ==
LOC: JER 17:41 → JERFT 17:41
DX: Z32.01 Encounter for pregnancy test, result positive (principal)
CPT/HCPCS: 36415; 84702; 99282-25

== ENCOUNTER 2022-10-01 17:19 | Emergency (ER) | payer OTHER ==
[2022-10-01 17:30] VITALS: BP 117/78; RESP 18; BMI 25.7
[2022-10-01] MEDS ORDERED: ACETAMINOPHEN 500 MG TABLET (FP) PO ONE (17:32)
[2022-10-01 19:28] VITALS: PULSE 98; TEMP 99
== END 2022-10-01 19:54 | disposition home or self-care (01) ==
LOC: JER 17:19
DX: J09.X2 Influenza due to identified novel influenza A virus with other respiratory manifestations (principal); R05.1 Acute cough; R50.9 Fever, unspecified
CPT/HCPCS: 0241U-QW; 87651; 99283-25

== ENCOUNTER 2022-10-29 20:53 | Emergency (ER) | payer OTHER ==
[2022-10-29 21:14] VITALS: BP 129/79; PULSE 65; RESP 17; TEMP 98.3; BMI 27.4
[2022-10-29] MEDS ORDERED: ACETAMINOPHEN 325 MG TABLET (FP) PO ONE (21:46)
[2022-10-29] MEDS ORDERED: LIDOCAINE 5% TOPICAL PATCH TP ONE (21:46)
[2022-10-29] MEDS ORDERED: LIDOCAINE 5% TOPICAL PATCH ONE (21:48)
[2022-10-29] MEDS ORDERED: ACETAMINOPHEN 500 MG TABLET (FP) ONE (21:49)
[2022-10-29] MEDS ORDERED: LIDOCAINE PATCH REMOVAL MC SCH (22:00)
[2022-10-29 22:16] LABS: PH,URINE 6.5 (5.0-8.0); URINE APPEARANCE CLOUDY; URINE BILIRUBIN NEGATIVE (NEGATIVE); URINE COLOR YELLOW; URINE GLUCOSE (UA) NEGATIVE (NEGATIVE); URINE KETONE NEGATIVE (NEGATIVE); URINE LEUK ESTERASE NEGATIVE (NEGATIVE); URINE NITRITE NEGATIVE (NEGATIVE); URINE PROTEIN NEGATIVE (NEGATIVE); URINE UROBILINOGEN 0.2 mg/dL (0.2-1.0)
== END 2022-10-30 01:25 | disposition home or self-care (01) ==
LOC: JER 20:53
DX: O26.892 Other specified pregnancy related conditions, second trimester (principal); R10.9 Unspecified abdominal pain; Z3A.11 11 weeks gestation of pregnancy
CPT/HCPCS: 76815; 76817-TC; 81003; 87086; 99285-25

== ENCOUNTER 2022-11-29 18:16 | Emergency (ER) | payer OTHER ==
[2022-11-29 18:30] VITALS: BP 101/60; PULSE 89; RESP 16; TEMP 98.4; BMI 27.4
[2022-11-29] MEDS ORDERED: METOCLOPRAMIDE HCL INJECTION 10 MG/2 ML VIAL IM ONE (19:17)
[2022-11-29] MEDS ORDERED: SODIUM CHLORIDE 0.9% 500 ML INFUS.BAG IV ONE (19:17)
[2022-11-29] MEDS ORDERED: ACETAMINOPHEN 1000 MG/100 ML BAG IVPB ONE (19:17)
[2022-11-29] MEDS ORDERED: METOCLOPRAMIDE HCL INJECTION 10 MG/2 ML VIAL ONE (19:33)
[2022-11-29] MEDS ORDERED: ACETAMINOPHEN INJECTION 100 ML IVPB ONE (19:33)
[2022-11-29 20:10] LABS: BASO % 0.3 % (0-2.0); EOS % 1.3 % (0-4.5); HEMATOCRIT 34.9 % (32.4-45.2); HEMOGLOBIN 12.1 GM/dL (10.7-15.3); LYMPH % 23.8 % (8-40); MCH 28.5 pg (25.7-33.7); MCHC 34.5 g/dl (32.0-36.0); MEAN CELL VOLUME 82.8 fl (80-96); MEAN PLT VOLUME 7.2 fl (7.5-11.1); NEUT % 66.6 % (42.8-82.8); PH,URINE 5.5 (5.0-8.0); PLATELET COUNT 320 10^3/uL (134-434); RBC 4.22 M/mm3 (3.60-5.2); RDW 14.1 % (11.6-15.6); URINE APPEARANCE CLEAR; URINE BILIRUBIN NEGATIVE (NEGATIVE); URINE COLOR YELLOW; URINE GLUCOSE (UA) NEGATIVE (NEGATIVE); URINE KETONE TRACE (NEGATIVE); URINE LEUK ESTERASE NEGATIVE (NEGATIVE); URINE NITRITE NEGATIVE (NEGATIVE); URINE PROTEIN NEGATIVE (NEGATIVE); URINE UROBILINOGEN 0.2 mg/dL (0.2-1.0); WHITE BLOOD COUNT 9.4 K/mm3 (4.0-10.0)
[2022-11-29 20:30] LABS: CALCIUM 8.8 mg/dL (8.5-10.1)
[2022-11-29 20:34] LABS: CREATININE 0.5 mg/dL (0.55-1.3)
[2022-11-29 20:35] LABS: BILIRUBIN,TOTAL 0.1 mg/dL (0.2-1); TOT PROT 6.9 g/dl (6.4-8.2)
== END 2022-11-29 22:18 | disposition home or self-care (01) ==
LOC: JER 18:16
PROC: 3E023GC Introduction of Other Therapeutic Substance into Muscle, Percutaneous Approach (ICD-10-PCS; principal; 2022-11-29)
PROC: 3E033GC Introduction of Other Therapeutic Substance into Peripheral Vein, Percutaneous Approach (ICD-10-PCS; principal; 2022-11-29)
DX: O26.892 Other specified pregnancy related conditions, second trimester (principal); R51.9 Headache, unspecified; Z3A.15 15 weeks gestation of pregnancy
CPT/HCPCS: 36415; 80053; 81003; 85025; 87086; 99284-25

== ENCOUNTER 2023-04-10 13:31 | Emergency (ER) | payer OTHER ==
[2023-04-10 13:34] VITALS: BP 106/64; PULSE 113; RESP 20; TEMP 98; BMI 28.0
[2023-04-10 15:40] LABS: HEMATOCRIT 29.1 % (32.4-45.2); HEMOGLOBIN 9.2 GM/dL (10.7-15.3); MCH 23.3 pg (25.7-33.7); MCHC 31.7 g/dl (32.0-36.0); MEAN CELL VOLUME 73.5 fl (80-96); PLATELET COUNT 485 10^3/uL (134-434); RBC 3.95 M/mm3 (3.60-5.2); RDW 16.5 % (11.6-15.6); WHITE BLOOD COUNT 9.6 K/mm3 (4.0-10.0)
[2023-04-10 15:59] LABS: POTASSIUM 4.1 mmol/L (3.5-5.1)
[2023-04-10 16:01] LABS: CALCIUM 9.8 mg/dL (8.5-10.1)
[2023-04-10 16:02] LABS: ALBUMIN 2.6 g/dl (3.4-5.0); BLOOD UREA NITROGEN 6.1 mg/dL (7-18)
[2023-04-10 16:04] LABS: BILIRUBIN,DIRECT 0.2 mg/dL (0.0-0.2)
[2023-04-10 16:05] LABS: CREATININE 0.5 mg/dL (0.55-1.3)
[2023-04-10 16:06] LABS: BILIRUBIN,TOTAL 0.5 mg/dL (0.2-1); TOT PROT 7.1 g/dl (6.4-8.2)
[2023-04-10 16:11] LABS: ANISOCYTOSIS 0; MACROCYTOSIS 0
== END 2023-04-10 16:51 | disposition home or self-care (01) ==
LOC: JER 13:31
DX: O26.86 Pruritic urticarial papules and plaques of pregnancy (PUPPP) (principal); O99.343 Other mental disorders complicating pregnancy, third trimester; G47.00 Insomnia, unspecified; Z3A.34 34 weeks gestation of pregnancy
CPT/HCPCS: 36415; 80053; 82248; 85025; 86850; 86900; 86901; 99283-25

== ENCOUNTER 2023-04-27 08:42 | Inpatient (IN) | payer OTHER ==
[2023-04-27] MEDS ORDERED: DINOPROSTONE 10 MG VAGINAL SUPPOSITORY VG ONE (09:30)
[2023-04-27 10:15] VITALS: BMI 28.5
[2023-04-27] MEDS ORDERED: ELECTROLYTE-148 SOLN 1,000 ML IV ONE (22:30)
[2023-04-28] MEDS: OXYTOCIN 30 UNITS in 0.9% NS 30 UNIT/500 ML INFUS.BAG IVPB SCH (07:50)
[2023-04-29] MEDS ORDERED: FENTANYL CITRATE/PF 50 MCG/ML VIAL ONE (07:49)
[2023-04-29] MEDS ORDERED: morphine SULFATE/PF 1 MG/2 ML (2cc Syringe - QUVA) ONE (07:49)
[2023-04-29] MEDS ORDERED: IBUPROFEN 800 MG/8 ML IJ IVPB PRN ×2 (07:51→16:16)
[2023-04-29] MEDS ORDERED: OXYTOCIN 30 UNITS in 0.9% NS 30 UNIT/500 ML INFUS.BAG IVPB ONE (08:25)
[2023-04-29] MEDS ORDERED: ePHEDrine SULFATE 50 MG/1 ML AMPULE ONE (08:27)
[2023-04-29] MEDS ORDERED: ceFAZolin SODIUM 1 GM VIAL ONE (08:31)
[2023-04-29] MEDS ORDERED: SODIUM CHLORIDE 0.9% P/F 10 ML VIAL IJ ONE (08:32)
[2023-04-29] MEDS: OXYTOCIN 20 UNITS in 0.9% NS 20 UNIT/1,000 ML INFUS.BAG IV SCH ×4 (09:00→12:31)
[2023-04-29] MEDS ORDERED: ONDANSETRON 4 MG/2 ML VIAL IVPUSH PRN ×2 (09:09)
[2023-04-29] MEDS ORDERED: morphine SULFATE/PF 1 MG/2 ML (2cc Syringe - QUVA) IT ONE (09:09)
[2023-04-29] MEDS ORDERED: ACETAMINOPHEN 1000 MG/100 ML BAG IVPB PRN (09:10)
[2023-04-29] MEDS ORDERED: LACTATED RINGERS SOLUTION 1,000 ML IV SCH (09:15)
[2023-04-29] MEDS: OXYTOCIN 30 UNITS in 0.9% NS 30 UNIT/500 ML INFUS.BAG IVPB SCH (11:03)
[2023-04-29] MEDS ORDERED: OXYTOCIN 20 UNITS in 0.9% NS 20 UNIT/1,000 ML INFUS.BAG IV ONE (12:28)
[2023-04-29] MEDS ORDERED: ACETAMINOPHEN INJECTION 100 ML IVPB ONE (15:17)
[2023-04-29] MEDS: ACETAMINOPHEN 1000 MG/100 ML BAG IVPB PRN ×2 (15:20→21:16)
[2023-04-29] MEDS ORDERED: oxyCODONE HCL 5 MG TABLET PO PRN (16:17)
[2023-04-29] MEDS ORDERED: IBUPROFEN 600 MG TABLET (FP) PO ONE (18:30)
[2023-04-29] MEDS: IBUPROFEN 600 MG TABLET (FP) PO PRN (18:31)
[2023-04-30] MEDS: IBUPROFEN 600 MG TABLET (FP) PO PRN ×4 (00:11→21:53)
[2023-04-30 02:00] VITALS: RESP 18
[2023-04-30] MEDS: SIMETHICONE 80 MG TAB.CHEW (FP) PO PRN ×3 (03:17→21:53)
[2023-04-30] MEDS: ACETAMINOPHEN 325 MG TABLET (FP) PO PRN ×3 (03:17→17:32)
[2023-04-30] MEDS ORDERED: BISACODYL 10 MG SUPP.RECT RC PRN (07:51)
[2023-04-30 09:30] LABS: BASO % 0.6 % (0-2.0); EOS % 0.2 % (0-4.5); HEMATOCRIT 22.5 % (32.4-45.2); HEMOGLOBIN 7.2 GM/dL (10.7-15.3); LYMPH % 18.2 % (8-40); MCH 22.7 pg (25.7-33.7); MCHC 31.8 g/dl (32.0-36.0); MEAN CELL VOLUME 71.4 fl (80-96); MEAN PLT VOLUME 7.6 fl (7.5-11.1); PLATELET COUNT 365 10^3/uL (134-434); RBC 3.15 M/mm3 (3.60-5.2); RDW 18.1 % (11.6-15.6); WHITE BLOOD COUNT 10.3 K/mm3 (4.0-10.0)
[2023-05-01] MEDS: IBUPROFEN 600 MG TABLET (FP) PO PRN ×3 (03:53→19:28)
[2023-05-01] MEDS: SIMETHICONE 80 MG TAB.CHEW (FP) PO PRN ×2 (07:05→19:28)
[2023-05-01 07:16] LABS: HEMATOCRIT 21.3 % (32.4-45.2); MCH 22.2 pg (25.7-33.7); MEAN CELL VOLUME 71.5 fl (80-96); MEAN PLT VOLUME 7.1 fl (7.5-11.1); PLATELET COUNT 405 10^3/uL (134-434); RBC 2.98 M/mm3 (3.60-5.2); RDW 18.2 % (11.6-15.6)
[2023-05-01 07:36] LABS: HEMOGLOBIN 6.6 GM/dL (10.7-15.3)
[2023-05-01] MEDS: ACETAMINOPHEN 325 MG TABLET (FP) PO PRN ×2 (08:03→17:11)
[2023-05-01] MEDS: FERROUS SO4 325 MG TABLET (FP) PO SCH (10:27)
[2023-05-02] MEDS: IBUPROFEN 600 MG TABLET (FP) PO PRN ×2 (02:21→09:49)
[2023-05-02 07:00] LABS: BASO % 0.7 % (0-2.0); EOS % 1.2 % (0-4.5); HEMATOCRIT 24.3 % (32.4-45.2); HEMOGLOBIN 7.8 GM/dL (10.7-15.3); LYMPH % 32.2 % (8-40); MCH 23.5 pg (25.7-33.7); MEAN CELL VOLUME 73.6 fl (80-96); MEAN PLT VOLUME 7.1 fl (7.5-11.1); MONO % 6.3 % (3.8-10.2); NEUT % 59.6 % (42.8-82.8); PLATELET COUNT 412 10^3/uL (134-434); RBC 3.31 M/mm3 (3.60-5.2); WHITE BLOOD COUNT 8.9 K/mm3 (4.0-10.0)
[2023-05-02 08:39] VITALS: BP 120/68; PULSE 83; TEMP 98
[2023-05-02] MEDS: FERROUS SO4 325 MG TABLET (FP) PO SCH (09:49)
== END 2023-05-02 11:51 | disposition home or self-care (01) | DRG 786 ==
LOC: JLDR 08:42 → J3W 04-29 19:10
PROVIDERS: ADMIT Obstetrics & Gynecology; ATTEND Obstetrics & Gynecology
PROC: 10D00Z1 Extraction of Products of Conception, Low, Open Approach (ICD-10-PCS; principal; 2023-04-29)
DX: O26.62 Liver and biliary tract disorders in childbirth (principal); K83.1 Obstruction of bile duct; Z3A.37 37 weeks gestation of pregnancy; Z37.0 Single live birth
CPT/HCPCS: 36415; 36430; 85025; 85027; 86850; 86900; 86901; 86922; 88307-TC; P9058

== ENCOUNTER 2023-09-16 20:10 | Emergency (ER) | payer OTHER ==
[2023-09-16 20:31] VITALS: BP 110/70; PULSE 94; RESP 18; TEMP 98.7; BMI 22.1
[2023-09-16] MEDS ORDERED: ACETAMINOPHEN 500 MG TABLET (FP) PO ONE (22:16)
[2023-09-16] MEDS ORDERED: ACETAMINOPHEN 500 MG TABLET (FP) ONE (22:18)
== END 2023-09-16 22:33 | disposition home or self-care (01) ==
LOC: JERFT 20:10
DX: O99.519 Diseases of the respiratory system complicating pregnancy, unspecified trimester (principal); J06.9 Acute upper respiratory infection, unspecified; O26.899 Other specified pregnancy related conditions, unspecified trimester; R09.81 Nasal congestion; Z20.822 Contact with and (suspected) exposure to COVID-19
CPT/HCPCS: 0241U-QW; 99283-25

== ENCOUNTER 2024-05-24 19:16 | Emergency (ER) | payer OTHER ==
[2024-05-24 19:23] VITALS: BP 123/62; PULSE 78; RESP 19; TEMP 99.5; BMI 23.6
[2024-05-24 20:43] LABS: THROAT:GRP A STREP NOT DETECTED (NOTDETECTED)
[2024-05-24] MEDS ORDERED: KETOROLAC TROMETHAMINE 30 MG/1 ML VIAL ONE (20:45)
[2024-05-24] MEDS ORDERED: DEXAMETHASONE SOD PHOSPHATE 10 MG/1 ML VIAL ONE (20:45)
[2024-05-24] MEDS: DEXAMETHASONE LIQUID 0.5 MG/5 ML PO ONE (20:57)
[2024-05-24] MEDS: KETOROLAC TROMETHAMINE 30 MG/1 ML VIAL IM ONE (20:57)
[2024-05-24] MEDS ORDERED: LIDOCAINE VISCOUS 2% ORAL/TOP 15 ML UNIT-DOSE CUP ONE (21:58)
[2024-05-24] MEDS ORDERED: MAG HYDROX/AL HYDROX/SIMETH 30 ML UNIT-DOSE CUP ONE (21:58)
[2024-05-24] MEDS: MAG HYDROX/AL HYDROX/SIMETH -MYLANTA- ORAL SUSPENSION PO ONE (22:01)
[2024-05-24] MEDS: LIDOCAINE VISCOUS 2% ORAL/TOP 15 ML UNIT-DOSE CUP MM ONE (22:02)
== END 2024-05-24 22:18 | disposition home or self-care (01) ==
LOC: JERFT 19:16 → JER 19:16 → JERFT 22:18
PROC: 3E0133Z Introduction of Anti-inflammatory into Subcutaneous Tissue, Percutaneous Approach (ICD-10-PCS; principal; 2024-05-24)
DX: J02.9 Acute pharyngitis, unspecified (principal); Z20.822 Contact with and (suspected) exposure to COVID-19
CPT/HCPCS: 0241U-QW; 87651; 99284-25